=== PATIENT | male | born 1950 | race Caucasian/White ===

== ENCOUNTER 2018-12-04 06:34 | Day surgery (SDC) | payer MEDICARE, BC ==
[~2018-12-04] VITALS: Ht 170.2 cm; Wt 72.7 kg
[2018-12-04 06:46] LABS: BASOPHILS 0.5 % (0-2); EOSINOPHILS 1.4 % (0-7); HEMATOCRIT 43.7 % (42.0-54.0); HEMOGLOBIN 15.5 g/dL (13.5-17.5); LYMPHOCYTES 45.1 % (15-50); MCH 32.8 pg (26.0-34.0); MCHC 35.5 g/dL (31.0-37.0); MCV 92.6 fL (80.0-100.0); MEAN PLATELET VOLUME 9.6 fL (7.4-10.4); MONOCYTES 9.6 % (2-11); NEUTROPHILS 43.4 % (40-80); PLATELET COUNT 233 10x3/uL (130-400); RBC 4.72 10x6/uL (4.20-6.10); RDW 12.5 % (11.5-14.5); WBC 4.2 10x3/uL (4.8-10.8)
[2018-12-04 06:59] LABS: APTT 28.7 SECONDS (22.8-39.4); PROTIME 12.7 SECONDS (11.6-15.0)
[2018-12-04] MEDS ORDERED: ZOCOR20 MG PO (07:12)
[2018-12-04] MEDS ORDERED: THERALITH XR T1 EACH PO (07:14)
[2018-12-04 07:20] VITALS: BP 132/74; Ht 170.2 cm; Wt 72.7 kg
--- NOTE | 2018-12-04 11:44 | NUR ---
DC INSTRUCTIONS GIVEN TO PT/SPOUSE. STATE UNDERSTANDING
--- NOTE | 2018-12-04 12:26 | NUR ---
PT LEFT UNIT VIA WC AT 1155
--- NOTE | 2018-12-04 14:43 | OP ---
PATIENT NAME: GENA FRANCO MEDICAL RECORD: [id number] :52 LOCATION:D.OPS ADMISSION DATE: SURGEON: KENNY BARGER MD DATE OF OPERATION: 12/04/2018 PRINCIPAL DIAGNOSIS: History of cecal polyp. POSTOPERATIVE DIAGNOSES: 1. History of cecal polyp with no evidence of persistence or regrowth of the cecal polyp. 2. Regrowth of a polyp within a scar at 70 cm. PROCEDURES: 1. Total colonoscopy to cecum. 2. Hot biopsy forceps polypectomy times 1. SURGEON: Kenny Barger MD AUTOMOTIVE [employer] CONVERTER: None. BLOOD LOSS: Minimal. ANESTHESIA: IV sedation. COMPLICATIONS: None. The risks, possible complications and alternatives to the procedure were explained to the patient. He elects to proceed. ENDOSCOPIC COURSE: The patient was conveyed to the endoscopy suite electively on 12/04/2018. IV sedation was induced by the anesthesia staff. The patient was placed in the Robles position. A digital rectal examination was performed. A colonoscope was inserted through the anus. It was easily advanced to the cecum. I interrogated the cecum carefully. I utilized not only normal imaging, but also narrow band imaging. I saw no evidence of a recurrent or persistent cecal polyp. I slowly withdrew the endoscope. The prep was adequate. I irrigated and aspirated extensively. I dragged the folds. The pullback was greater than a 15-minute pullback. One polyp was noted within a scar. This was a sessile polyp, which was a 1.0 cm polyp and appeared adenomatous. It was removed in its entirety utilizing the hot biopsy forceps polypectomy technique. A retroflexed view was obtained in the rectum. I then unretroflexed the scope and removed it under direct vision. I will see the patient in my office in 2-3 weeks. I will plan for his next colonoscopy to take place in 2 years. TRANSINT:[id number] Voice Confirmation ID: [id number] DOCUMENT ID: [id number] OPERATIVE REPORT [id number] SALVADORGENA SantaKENNY NIXON MD at 1443 CC: JERMAIN FLOWERS MD and TING FIGUEROA [id number] DICTATION DATE: 12/04/18 1113 TRANSFORMATION SPECIALIST: 12/04/18 1132 [facility] 12/04/18 [facility] [address] [facility] [place] [address]
--- NOTE | 2018-12-04 14:43 | HP ---
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 The patient is here to undergo colonoscopy with polypectomy. The risks, possible complications, and alternatives to the procedure were explained to the patient. He elects to proceed. He has had no abdominal pain. No rectal bleeding. HOME MEDICINES: Zocor. ALLERGIES: AMOXICILLIN WELL AUGMENTIN. SOCIAL HISTORY: Nonsmoker. PAST MEDICAL AND SURGICAL HISTORY: Ureteral stones as well as hypercholesterolemia. PHYSICAL EXAMINATION: GENERAL: The patient does not appear acutely ill. He does not appear chronically ill. VITAL SIGNS: Reviewed. EARS: External ears appear normal. EYES: Extraocular movements are intact. NECK: Trachea is midline. CHEST: No intercostal retractions. PULMONARY: Nonlabored, no stridor. IMPRESSION: Cecal polyp. PLAN: Colonoscopy with polypectomy. TRANSINT:[id number] Voice Confirmation ID: [id number] DOCUMENT ID: [id number] KENNY BARGER MD at 1443 CC: JERMAIN FLOWERS MD and TING FIGUEROA [id number] DICTATION DATE: 12/04/18 1025 COURTROOM REPORTER: 12/04/18 1038 [facility] 12/04/18 [facility] [address] [place] [address]
== END 2018-12-04 11:55 | disposition home or self-care (01) ==
LOC: D.OPS 06:34
PROVIDERS: Anesthesiology; ATTEND Surgery
DX: D12.4 Benign neoplasm of descending colon (principal); Z86.010 Personal history of colon polyps; Z01.812 Encounter for preprocedural laboratory examination